=== PATIENT | male | born 1965 | race Asian ===

== ENCOUNTER 2020-12-14 00:32 | Emergency (ER) | payer OTHER ==
[~2020-12-14] VITALS: Ht 172.7 cm; Wt 83.9 kg
[2020-12-14] MEDS ORDERED: CRESTOR10 MG (00:44)
[2020-12-14] MEDS ORDERED: KETO10TA2 PO (05:29)
[2020-12-14] MEDS ORDERED: NORFLEX100MG PO (05:29)
== END 2020-12-14 06:31 | disposition home or self-care (01) ==
LOC: ER 00:32
DX: M54.5 Low back pain (principal); M79.661 Pain in right lower leg; G89.11 Acute pain due to trauma